=== PATIENT | female | born 1995 | race African-American/Black ===

== ENCOUNTER 2023-01-24 16:22 | Emergency (ER) | payer OTHER, SELFPAY ==
[2023-01-24 16:34] VITALS: BP 172/97; PULSE 99; RESP 14; TEMP 37.2; O2SAT 99; BMI 39.6
--- NOTE | 2023-01-24 20:41 | ED_ITS ---
HPI - Back Pain/Injury General Chief Complaint: Back Pain/Injury Stated Complaint: severe back pain Time Seen by Provider: 01/24/23 20:41 Source: patient Mode of arrival: Ambulatory Limitations: no limitations History of Present Illness HPI Narrative: 27-year-old female history of hypertension with complaint of low back pain radiating down her right leg. Patient states she is had occasional minimal low back pain but over the last 24 hours has had increasing pain lower back sort of midline and radiating down her right leg towards her buttock and sometimes towards her knee. She denies any weakness, no loss of bowel or bladder control, no saddle anesthesia. No paresthesias. Patient states she is had back issues in the past but not quite similar to this. Patient states she did sit sort of awkwardly work the other day. 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 No trauma, no other injury she does not recall any other inciting incidents. She has not had any fevers, no chest pain no shortness of breath no syncope. No nausea no vomiting no other GI or urinary symptoms. Patient states lateral movement and twisting seemed to exacerbate it the most. She states no major surgeries other than 2 lipomas removed from the soft tissue in the lateral sides of her back remotely. No known drug allergies. No tobacco, alcohol or illicit regularly. She had ibuprofen last night he would 100 mg but none today. Primary care is through the [facility]. Related Data Previous Rx's Medication Instructions Recorded cyclobenzaprine 10 mg tablet 10 mg PO TID PRN muscle spasm #10 01/24/23 tabs meloxicam 7.5 mg tablet 7.5 mg PO BID PRN pain #14 tabs 01/24/23 Allergies Allergy/AdvReac Type Severity Reaction Status Date / Time No Known Drug Allergies Allergy Verified 01/24/23 16:33 Review of Systems Review of Systems ROS Unobtainable: All systems reviewed & are unremarkable except as noted in HPI and below Patient History Social History Smoking Status: Unknown if ever smoked Smoking Status: Unknown if ever smoked alcohol intake frequency: holidays/special occasions only Substance Use Type: does not use Exam Narrative Exam Narrative: GENERAL: Alert and oriented x three, obese female in [id number] distress. HEENT: Head normocephalic, atraumatic, EOMI, pupils reactive, face symmetric, moist mucous membranes NECK: Supple, full range of motion CARDIOVASCULAR: Regular rate and rhythm without murmurs, rubs or gallops. RESPIRATORY: Breath sounds equal bilaterally, no wheezes rales or rhonchi. ABDOMEN: Soft, nontender. Normoactive bowel sounds all 4 quadrants. No guarding or rebound, rigidity, no mass : No CVA tenderness BACK: No cervical, thoracic or lumbar vertebral point tenderness. Patient has slightly decreased range of motion, patient is sitting quite upright slightly forward, movement does appear to be uncomfortable. She is seated in a chair.. Patient's gait is deferred. Rectal exam is deferred. Muscle strength is 5/5 in lower extremities, DTRs are 2/4 and lower extremities. Dorsalis pedis and tibialis pulses are 2+ and lower extremities. Sensation is intact in the lower extremities. Normal plantar or flexion dorsiflexion. EXTREMITIES: Normal range of motion, no clubbing or edema. Neurovascularly intact NEUROLOGICAL: Cranial nerves II through XII grossly intact. Moving all extremities SKIN: Warm, dry, no petechiae, no rashes or lesions. Initial Vital Signs Initial Vital Signs: Vital Signs Temperature 98.9 F 01/24/23 16:34 Pulse Rate 99 H 01/24/23 16:34 Respiratory Rate 14 01/24/23 16:34 Blood Pressure 172/97 H 01/24/23 16:34 Pulse Oximetry 99 01/24/23 16:34 Oxygen Delivery Method Room Air 01/24/23 16:34 Course Orders Ordered: Discontinued Medications Cyclobenzaprine HCl (Cyclobenzaprine 10 Mg Prepack) 1 bottle MISC SEEINSTR ONE Stop: 01/24/23 23:04 Last Admin: 01/24/23 23:22 Dose: 1 bottle Documented By: JENNIFER Ketorolac Tromethamine (Ketorolac 30 Mg/Ml Vial) 30 mg IM NOW ONE Stop: 01/24/23 23:04 Last Admin: 01/24/23 23:15 Dose: 30 mg Documented By: JENNIFER Vital Signs Vital signs: Vital Signs - 8 hr 01/24/23 23:10 Pulse Rate 88 Blood Pressure 167/94 H Pulse Oximetry 99 Oxygen Delivery Method Room Air MDM - Back Pain/Injury Lab Data Labs: Point of Care Testing Test Results Negative Urine Dip Bedside Urine Glucose Negative Bedside Urine Bilirubin - Negative Bedside Urine Ketone - Negative Urine Specific [place] 1.015 Bedside Urine Occult Blood - Negative Bedside Urine pH 6.0 Bedside Urine Protein - Negative Bedside Urine Urobilinogen - Negative Bedside Urine Nitrite - Negative Bedside Urine Leukocytes - Negative Esterase MDM Narrative Medical decision making narrative: This is a 27-year-old female with complaint of low back pain. Patient has no red flag symptoms currently. Discussed with patient has not had extended. If symptoms do not feel she requires imaging this evening. No acute neurologic changes. Patient given shot of Toradol, Flexeril for spasm. Discussed with patient pain management, red flag symptoms and reasons for emergent return as well as need for follow-up. Discharge Plan Departure Patient Disposition: Home Clinical Impression: Low back pain Instructions: DI for Low Back Pain Activity Restrictions/Additional Instructions: Please follow-up for recheck if your symptoms are persisting beyond the next week. You may take Tylenol up to a 1000 mg every 6 hours as needed. You may take meloxicam 1 tablet every 12 hours as needed for pain. Do not take ibuprofen, Aleve or other NSAIDs with this medication. Take Flexeril 1 tablet every 8 hours as needed for muscle spasm. Prescription sent to the [facility] pharmacy in [place]. Please return for fevers, rapidly worsening pain, loss of bowel or bladder control, loss of sensation in the groin, lower extremities, inability to lift or move your leg or foot, passing out or other new or concerning changes. Prescriptions: New cyclobenzaprine 10 mg tablet 10 mg PO TID PRN (Reason: muscle spasm) Qty: 10 0RF meloxicam 7.5 mg tablet 7.5 mg PO BID PRN (Reason: pain) Qty: 14 0RF Referrals: ProviderHellen [Primary Care Provider] - Stand Alone Forms: Patient Portal/API, Work Release Note
[2023-01-24 20:53] VITALS: BP 161/89; PULSE 89; O2SAT 97
[2023-01-24 23:10] VITALS: BP 167/94; PULSE 88; O2SAT 99
[2023-01-24] MEDS: KETOROLAC 30 MG/ML VIAL IM (23:15)
[2023-01-24] MEDS: CYCLOBENZAPRINE 10 MG PREPACK 1 BOTTLE MISC (23:22)
== END 2023-01-24 23:36 | disposition home or self-care (01) ==
PROVIDERS: Emergency Provider Emergency Medicine
DX: M54.50 Low back pain, unspecified (principal); M62.830 Muscle spasm of back
CPT/HCPCS: 81003; 81025; 96372; 99283; J1885

== ENCOUNTER → 2023-10-11 16:19 | Outpatient (CLI) | payer OTHER, SELFPAY ==
[2023-10-11 18:04] LABS: Follicle Stimulating Hormone 4.53 mIU/mL; Luteinizing Hormone 5.08 mIU/mL
[2023-10-11 18:06] LABS: HCG Quantitative /Beta subunit < 2.39 mIU/mL
[2023-10-11 18:14] LABS: TSH w/ Reflex to FT4 2.01 uIU/mL (0.47-4.68)
[2023-10-11 19:36] LABS: Prolactin 15.4 ng/mL (3.0-18.6)
== END ==
PROVIDERS: Referring Provider Obstetrics & Gynecology; Visit Provider Obstetrics & Gynecology
DX: N91.2 Amenorrhea, unspecified (principal); N97.0 Female infertility associated with anovulation
CPT/HCPCS: 36415; 83001; 83002; 84146; 84443; 84702

== ENCOUNTER → 2023-10-23 15:46 | Outpatient (CLI) | payer OTHER, SELFPAY ==
--- NOTE | 2023-10-23 15:46 | DI.US.S_ITS ---
PROCEDURE: US PELVIC COMPLETE INDICATIONS: Hx of PCOS TECHNIQUE: Real-time scanning was performed of the pelvic organs, with image documentation. Additional endovaginal scanning was necessary due to incomplete visualization of the adnexal and endometrial structures by transabdominal scanning. COMPARISON: None. FINDINGS: Uterus: Uterus is anteverted and normal in size at 6.2 x 3.6 x 4.8 cm. The myometrium is homogeneous. The endometrium measures 7.9 mm combined thickness. Ovaries: The right ovary measures 3.4 x 2.2 x 2.6 cm, with a calculated ovarian volume of 10.2 cc. The left ovary measures 3.2 x 2.8 x 2.1 cm, with a calculated ovarian volume of 9.6 cc. Greater than 12 follicles can be seen in each ovary. No adnexal masses are seen. Other: No pathologic free abdominal or pelvic fluid. IMPRESSION: Greater than 12 sub-5 mm follicular cysts in the bilateral ovaries, a nonspecific finding which can be associated with polycystic ovarian morphology. We strive to produce accurate, complete, and clear reports of imaging services. To assist us in improving patient care, this report was composed using standard report templates and voice recognition software. Therefore, it may contain abnormal punctuation, insertions and/or omissions. Occasional wrong-word or sound-alike substitutions may occur. Though we review the report and make efforts to correct it, we do recommend that the report be read carefully in proper context to recognize any text inaccuracies. Dictated by: Devyn Hood M.D. on 10/24/2023 at 8:38 Approved by: Devyn Hood M.D. on 10/24/2023 at 8:40
== END ==
PROVIDERS: Referring Provider Obstetrics & Gynecology; Visit Provider Obstetrics & Gynecology
DX: N91.2 Amenorrhea, unspecified (principal); N97.0 Female infertility associated with anovulation
CPT/HCPCS: 76830; 76856